=== PATIENT | female | born 1990 | race American Indian/Alaskan Native ===

== ENCOUNTER 2022-03-24 13:58 | Emergency (ER) | payer MEDICAID ==
[2022-03-24 16:19] LABS: CARBON DIOXIDE,CO2 25.2 mmol/L (21.0-32.0); POTASSIUM,K 3.7 mmol/L (3.5-5.1)
[2022-03-24] MEDS ORDERED: Iopamidol 755 MG/ML 500 ML Multipack Bottle IVPUSH ONE (16:43)
== END 2022-03-24 17:32 | disposition home or self-care (01) ==
LOC: MW.ED 13:58
DX: R23.4 Changes in skin texture (principal); I10 Essential (primary) hypertension
CPT/HCPCS: 36415; 71260; 80053; 83605; 84703; 85025; 85610; 87040; 99284; Q9967

== ENCOUNTER 2022-04-06 11:08 | Emergency (ER) | payer MEDICAID ==
[2022-04-06] MEDS ORDERED: Sodium Chloride 0.9% 2.5 ML Syringe FLUSH PRN (11:47)
[2022-04-06] MEDS ORDERED: Sodium Chloride 0.9% 10 ML Syringe FLUSH PRN (11:47)
[2022-04-06] MEDS ORDERED: Ondansetron 4 MG/2 ML SDV IVPUSH ONE (11:49)
[2022-04-06] MEDS ORDERED: Morphine 4 MG/ML Syringe IVPUSH ONE ×2 (11:49→15:47)
[2022-04-06 12:45] LABS: CARBON DIOXIDE,CO2 28.5 mmol/L (21.0-32.0); POTASSIUM,K 3.9 mmol/L (3.5-5.1)
[2022-04-06] MEDS ORDERED: Iopamidol 755 MG/ML 500 ML Multipack Bottle IVPUSH STA (13:05)
[2022-04-06] MEDS ORDERED: cefTRIAXone 2 GM in Premix Bag 1 BAG IV ONE (14:53)
[2022-04-06] MEDS ORDERED: VANCOmycin 1.5 GM/300 ML 1.5 GM in Premix Bag 1 BAG IV ONE (15:45)
[2022-04-06] MEDS ORDERED: Heparin Sodium 100 Units/ML 3 ML Syringe FLUSH STA (17:46)
== END 2022-04-06 18:07 | disposition home or self-care (01) ==
LOC: MW.ED 11:08
DX: L03.213 Periorbital cellulitis (principal); H05.012 Cellulitis of left orbit; I10 Essential (primary) hypertension; Z79.899 Other long term (current) drug therapy
CPT/HCPCS: 36415; 70481; 80053; 85025; 96365; 96366; 96367; 96375; 96376; 99284; J0696; J1642; J2270; J2405; J3370; J3490; Q9967